=== PATIENT | female | born 1995 | race Caucasian/White ===

== ENCOUNTER → 2016-12-14 | Outpatient (CLI) | payer OTHER ==
[~2016-12-14] MED LIST: ETONMIS VAGRING; FLUO40CA8 PO; VENL150C PO
== END | disposition home or self-care (01) ==
LOC: C.RDSM 12:09
PROVIDERS: ATTEND Physical Medicine & Rehabilitation Sports Medicine
DX: M25.562 Pain in left knee (principal)

== ENCOUNTER 2017-01-17 22:23 | Emergency (ER) | payer OTHER ==
[~2017-01-17] VITALS: Ht 162.6 cm; Wt 108.2 kg
[~2017-01-17 22:23] MED LIST changes: -ETONMIS VAGRING; -VENL150C PO
[2017-01-17 22:25] VITALS: BP 150/94; PULSE 102; TEMP 36.9; O2SAT 96; Ht 162.6 cm; Wt 108.2 kg
[2017-01-17] MEDS ORDERED: VENL150C PO (22:43)
[2017-01-17] MEDS ORDERED: ETONMIS VAGRING (22:43)
--- NOTE | 2017-01-17 22:48 | EMERGENCY ROOM VISIT NOTE ---
History First contact with patient: 22:29 Chief Complaint: LOPEZ PAIN Stated Complaint: NUMB/SWOLLEN LF LOPEZ History of Present Illness The patient is a 22 year old female who presents to the Emergency Room with complaints of numbness in the left lopez. The patient states that she was hit by her dog 5 days ago. She reports that she has a bruise in the area now and the area is slightly numb to touch. She denies any pain with weightbearing or difficulty walking. She rates the overall discomfort a 1/10. There is no calf pain. She denies any history of blood clots, recent travel, smoking or control pill use. Review of Systems A complete 6 point review of systems was reviewed with the patient with pertinent positives and negatives as per history of present illness. All else were negative. Social History Smoking Status: Never Smoker Current/Historical Medications Scheduled Etonogestrel/Ethinyl Estradiol (Nuvaring), 1 EA VAGRING MONTHLY Venlafaxine Hcl (Effexor Xr), Unknown Dose PO DAILY Allergies Coded Allergies: No Known Allergies (Unverified , 01/17/17) Physical Exam Vital Signs Date Time Temp Pulse Resp B/P (MAP) Pulse Ox O2 Delivery O2 Flow Rate FiO2 01/17/17 22:25 36.9 102 16 150/94 96 Room Air Physical Exam VITALS: Vitals are noted on the nurse's note and reviewed by myself. Vital signs stable. GENERAL: This is a 22-year-old female, in no acute distress, nondiaphoretic, well-developed well-nourished. SKIN: There are a few small abrasions to the anterior lower left lopez. MUSCULOSKELETAL: There is an area of ecchymosis and swelling in the anterior lower left lopez. Full range of motion of the left ankle and knee. Dorsalis pedis pulse is 2+. NEURO: Patient was alert and oriented to person place and time. Normal sensation to light and sharp touch. Medical Decision & Procedures Medical Decision Differential diagnosis includes hematoma, fracture, DVT, superficial thrombosis , among others. The patient is a 22-year-old female who presents today complaining of left leg pain after an injury which occurred several days ago. She is concerned because there is some numbness in the area. Exam reveals a hematoma which is likely the cause of the numbness. There are no significant findings on exam. I am not suspicious of DVT. The patient has minimal pain and I do not feel that x- ray is necessary. Conservative measures were discussed. She was encouraged to use anti-inflammatories at home. She verbalized understanding of my assessment and treatment plan and was discharged home in good condition. Impression Primary Impression: Traumatic hematoma of lower leg Departure Information Dispostion Home / Self-Care Condition GOOD Referrals Kelsy Busby D.O. (PCP) Patient Instructions [facility] Additional Instructions Ibuprofen, 600 mg every 6 hours. This will help with inflammation and swelling. Elevate the leg and apply ice for swelling/pain. If you still have any numbness or concerning symptoms in 1 week, you should follow-up with your primary care provider or orthopedics for further evaluation. Problem Qualifiers Primary Impression: Traumatic hematoma of lower leg Encounter type: initial encounter Laterality: left Qualified Codes: S80.12XA - Contusion of left lower leg, initial encounter
== END 2017-01-17 22:52 | disposition home or self-care (01) ==
LOC: C.EDB 22:23
DX: S80.12XA Contusion of left lower leg, initial encounter (principal); S80.812A Abrasion, left lower leg, initial encounter; W54.1XXA Struck by dog, initial encounter